=== PATIENT | male | born 1985 | race African-American/Black ===

== ENCOUNTER 2020-07-21 16:12 | Emergency (ER) | payer SELFPAY ==
[~2020-07-21] VITALS: Ht 182.9 cm; Wt 84.0 kg
[2020-07-21 17:38] VITALS: BP 124/77
--- NOTE | 2020-07-21 17:52 | PHYS DOC ---
Past Medical History Past Medical History: Arthritis Past Surgical History: Other Additional Past Surgical Histo: LEFT HAND SX Smoking Status: Current Every Day Smoker Alcohol Use: Heavy General Adult EDM: Chief Complaint: HEADACHE HPI: HPI: Patient is a 35 year old male who presents with 2 days of nasal congestion, cough, headache. He has not been running any fever. He denies chest pain, shortness of air, abdominal pain, nausea, vomiting, diarrhea, dizziness, vision changes, focal weakness, numbness or tingling. He states he is a smoker. And other history is arthritis. He states he is unsure if he has been around anybody else that has been sick. He works in a warehouse. Review of Systems: Review of Systems: Constitutional: Denies fever or chills. [] Eyes: Denies change in visual acuity. [] HENT: + nasal congestion or denies sore throat. [] Respiratory: + cough or denies shortness of breath. [] Cardiovascular: Denies chest pain or edema. [] GI: Denies abdominal pain, nausea, vomiting, bloody stools or diarrhea. [] : Denies dysuria. [] Musculoskeletal: Denies back pain or joint pain. [] Integument: Denies rash. [] Neurologic: +headache, denies focal weakness or sensory changes. [] Endocrine: Denies polyuria or polydipsia. [] Lymphatic: Denies swollen glands. [] Psychiatric: Denies depression or anxiety. [] Heart Score: C/O Chest Pain: No Risk Factors: Risk Factors: DM, Current or recent (<one month) smoker, HTN, HLP, family his tory of CAD, obesity. Risk Scores: Score 0 - 3: 2.5% MACE over next 6 weeks - Discharge Home Score 4 - 6: 20.3% MACE over next 6 weeks - Admit for Clinical Observation Score 7 - 10: 72.7% MACE over next 6 weeks - Early Invasive Strategies Allergies: Allergies: Allergies Coded Allergies Type Severity Reaction Last Updated Verified No Known Drug Allergies 07/21/20 No Physical Exam: PE: Constitutional: Well developed, well nourished, no acute distress, non-toxic appearance. [] HENT: Normocephalic, atraumatic, bilateral external ears normal, oropharynx moist, no oral exudates, nose normal. Nasal congestion. [] Eyes: PERRLA, EOMI, conjunctiva normal, no discharge. [] Neck: Normal range of motion, no tenderness, supple, no stridor. [] Cardiovascular:Heart rate regular rhythm, no murmur [] Lungs & Thorax: Bilateral breath sounds clear to auscultation [] Abdomen: Bowel sounds normal, soft, no tenderness, no masses, no pulsatile masses. [] Skin: Warm, dry, no erythema, no rash. [] Back: No tenderness, no CVA tenderness. [] Extremities: No tenderness, no cyanosis, no clubbing, ROM intact, no edema. [] Neurologic: Alert and oriented X 3, normal motor function, normal sensory function, no focal deficits noted. [] Psychologic: Affect normal, judgement normal, mood normal. [] Current Patient Data: Vital Signs: Vital Signs Date Time Temp Pulse Resp B/P (MAP) Pulse Ox O2 Delivery O2 Flow Rate FiO2 07/21/20 17:38 98.5 72 12 124/77 (93) 98 Room Air 98.5 EKG: EKG: [] Radiology/Procedures: Radiology/Procedures: [] Impression: [facility] [address] [place] [address] IMAGING REPORT Signed PATIENT: HARINI JACKSON ACCOUNT: [id number] : 1985 LOCATION: ER AGE: 35 SEX: M EXAM STATUS: PRE ER ORD. PHYSICIAN: VERONICA KELLY APRN REASON: cough PROCEDURE: PORTABLE CHEST 1V AP chest x-ray HISTORY: Cough. FINDINGS: Heart size upper limits normal. Mediastinal silhouette is normal. No pneumothorax, pulmonary opacities or pleural effusions. The bones are unremarkable. IMPRESSION: No acute process. Electronically signed by: Brady Abebe MD (07/21/2020 6:14 PM) [facility] [place] DICTATED and SIGNED BY: BRADY ABEBE MD DATE: 07/21/20 [id number] 0 Course & Med Decision Making: Course & Med Decision Making Pertinent Labs and Imaging studies reviewed. (See chart for details) COVID-19 CRITERIA: The patient was evaluated during the global COVID-19 pandemic, and that diagnosis was suspected/considered upon their initial presentation. Their evaluation, treatment and testing was consistent with current guidelines for patients who present with complaints or symptoms that may be related to COVID-19. See HPI. Alert and oriented x4. Ambulatory with a steady gait. Skin pink warm and dry. Left upper lung is coarse but lungs are otherwise clear. Abdomen is soft and nontender. Vital signs are within normal limits. He is afebrile. Patient states that he has been coughing up yellow mucus. [] Dragon Disclaimer: Dragon Disclaimer: This electronic medical record was generated, in whole or in part, using a voice recognition dictation system. COVID-19 Patient Risks: Age 65 or older: No Sign of co-morbidity: Yes Exp to person + for COVID: No Exp to PUI: No Travel from affected area: No Lower respiratory symptoms: Yes Fever: No Other: Yes (nasal congestion) PPE Use: Full PPE with N95 mask or PAPR: Yes Departure Departure Impression: Primary Impression: Nasal congestion Additional Impressions: Headache Qualified Codes: R51.9 - Headache, unspecified Cough Person under investigation for COVID-19 Disposition: 01 HOME / SELF CARE / HOMELESS Condition: STABLE Patient Instructions: Cough, Adult, Sinus Headache, Sinusitis Additional Instructions: Follow-up with primary care provider if you need to. Covid test will back in 48 hours. Take all medications as prescribed and with food. Drink plenty of fluids. Take ibuprofen or Tylenol for your pain. Scripts Cetirizine Hcl (ZYRTEC) 10 Mg Tablet 1 TAB PO DAILY, #20 TAB 2 Refills Prov: VERONICA KELLY APRN 07/21/20 Benzonatate (TESSALON PERLE) 100 Mg Capsule 1 CAP PO TID, #21 CAP Prov: VERONICA KELLY SYSTEM DEVELOPMENT ENGINEER 07/21/20 Methylprednisolone (MEDROL) 4 Mg Tab.ds.pk 1 PKG PO UD, #1 PKG Prov: VERONICA KELLY APRN 07/21/20 Azithromycin (AZITHROMYCIN TABLET) 250 Mg Tablet 1 PKG PO UD for 5 Days, #6 TAB 0 Refills 2 the first day followed by 1 for days 2-5 Prov: VERONICA KELLY SYSTEM DEVELOPMENT ENGINEER 07/21/20 VERONICA KELLY APRN July 21, 2020 17:52
--- NOTE | 2020-07-21 18:16 | RAD ---
AP chest x-ray HISTORY: Cough. FINDINGS: Heart size upper limits normal. Mediastinal silhouette is normal. No pneumothorax, pulmonar y opacities or pleural effusions. The bones are unremarkable. IMPRESSION: No acute process. Electronically signed by: Brady Abebe MD (07/21/2020 6:14 PM) [facility]
[2020-07-21] MEDS ORDERED: BENZ100C PO (18:50)
[2020-07-21] MEDS ORDERED: METH4TAB2 PO (18:50)
[2020-07-21] MEDS ORDERED: AZIT250T6 PO (18:50)
[2020-07-21] MEDS ORDERED: CETI10TA74 PO (18:50)
--- NOTE | 2020-07-22 15:07 | NUR ---
IP: Attempted to contact pt concerning covid results. Left a message with his to have him return my call.
--- NOTE | 2020-07-22 16:08 | NUR ---
IP: Pt returned my call. I informed him of the negative covid test. Pt verbalized understanding.
== END 2020-07-21 19:05 | disposition home or self-care (01) ==
LOC: ER 16:12
DX: R05 Cough (principal); Z20.822 Contact with and (suspected) exposure to COVID-19; R09.81 Nasal congestion; R51.9 Headache, unspecified; F17.200 Nicotine dependence, unspecified, uncomplicated
CPT/HCPCS: 71045; 99284; U0003; U0005